=== PATIENT | male | born 2000 | race Caucasian/White ===

== ENCOUNTER → 2020-04-27 16:42 | Outpatient (CLI) | payer BC, SELFPAY | PROVIDERS: PCP Family Medicine; Visit Provider Nurse Practitioner | DX: J35.8 Other chronic diseases of tonsils and adenoids (principal) | CPT/HCPCS: 87070 ==

== ENCOUNTER → 2020-08-26 13:21 | Outpatient (CLI) | payer BC, SELFPAY ==
[2020-08-26 15:37] LABS: COVID19 -Nasal RAPID Negative (Negative)
== END ==
PROVIDERS: PCP Family Medicine; Visit Provider Nurse Practitioner
DX: Z20.828 Contact with and (suspected) exposure to other viral communicable diseases (principal)
CPT/HCPCS: 87635

== ENCOUNTER 2020-08-29 07:34 | Day surgery (SDC) | payer BC, SELFPAY ==
[2020-08-26 13:28] VITALS: BMI 25.8
[2020-08-29] VITALS (11 sets, daily range): BP systolic 98–125; BP diastolic 44–78; PULSE 62–79; RESP 12–18; TEMP 36.2–36.7; O2SAT 94–100; BMI 24.4
[2020-08-29] MEDS: LACTATED RINGERS 1,000 ML 42 ML IV (08:13)
--- NOTE | 2020-08-29 08:36 | PM.PREOP ---
Pre-operative Note COVID-19 COVID-19 status: Negative Result date/Date tested (Pos, Neg/Pending): 08/26/20 Interval Note History & Physical reviewed/Exam performed by Physician: Yes Changes to H&P: No
--- NOTE | 2020-08-29 08:37 | P.HP_ITS ---
History of Present Illness History of Present Illness Date Patient Seen: 08/29/20 Time Patient Seen: 08:37 Chief complaint: Chronic tonsillitis, tonsil stones, throat pain Narrative: 19-year-old male presents for evaluation of recurrent tonsil stones, tonsillar hypertrophy and throat pain especially after suffering mononucleosis 3 years ago. Seven day episodes of fatigue throat pain and cervical lymphadenopathy with tonsillar hypertrophy occurring on average monthly over the last year. Also weekly tonsil stones. Following discussion of the material risks benefits complications and alternatives, he elected to proceed with tonsillectomy and possible adenoidectomy due to the failure of medical therapy. Patient History Medical History Allergic rhinitis Chronic tonsillitis Enlarged tonsils Mononucleosis (~2017) Post-nasal drainage Tonsillar hypertrophy Family & Social History Social History: household members family Tobacco & Substance use: Smoking Status Never smoker alcohol intake current alcohol intake frequency a few times a week Substance Use Type does not use Meds Home Medications and Allergies Home Medications Medication Instructions Recorded Confirmed Type cetirizine [Zyrtec] 10 mg PO DAILY 08/26/20 08/29/20 History Allergies Allergy/AdvReac Type Severity Reaction Status Date / Time Penicillins Allergy Rash Verified 08/29/20 07:44 Review of Systems Review of Systems ROS: Yes All systems reviewed with the patient and are negative except as otherwise documented Exam Vital Signs (past 8 hours): - 08/29/20 07:50 Temperature 98.1 F Pulse Rate 69 Respiratory Rate 16 Blood Pressure 120/62 Pulse Oximetry 100 Oxygen Delivery Method Room Air Narrative Exam Narrative: Well-developed well-nourished male. Tonsils 2 to 3+. Heart regular rate and rhythm without murmur, lungs clear to auscultation bilaterally. Assessment & Plan Assessment & Plan narrative: Assessment: Chronic tonsillitis, tonsil stones, r ecurring acute tonsillitis, respiratory obstruction and tonsillar hypertrophy Plan: Following discussion of the material risks benefits complications and alternatives, he elected to proceed with tonsillectomy and possible adenoidectomy.
--- NOTE | 2020-08-29 08:40 | PM.OP.1 ---
Operative Date/Time/Diagnoses Date of procedure: 08/29/20 Time of procedure: 09:29 Pre-op diagnosis: Chronic tonsillitis, tonsil stones, recurring acute tonsillitis, respiratory obstruction, tonsillar hypertrophy Post-op diagnosis: same Procedure & Clinicians Procedure: Tonsillectomy and adenoidectomy Same procedure as scheduled: Yes Indications: 20-year-old male with the above diagnoses incompletely managed with medical therapy presents for the above procedures. Following discussion of the material risks benefits complications and alternatives, he elected to proceed. Surgeon: Chandra Araiza Click Yes if Unassisted: Yes Anesthesia Type: General and Local Operative Notes Findings: Intact palate, single uvula, 2 to 3+ tonsils with numerous stones, 2+ adenoids. 3mm vessel visible LEFT tonsillar fossa, intact, not manipulated. Closure Type: not applicable Specimen(s): none sent Estimated Blood Loss (mL): 5 Blood products transfused: none Procedure in detail: Following identification and confirmation of consent the patient was brought to the operating room suite and placed in the supine position. General endotracheal anesthesia was administered. A head wrap, shoulder roll, and mouth gag were placed and a red rubber catheter was inserted through the nostril and out the mouth to retract the soft palate. Mild adenoid tissue was ablated with suction electrocautery on a setting of 40, without injury to the eustachian tube orifices or choana. The left tonsil was retracted medially and suction electrocautery on a setting of 30 was used to dissect the tonsil in a subcapsular plane, followed by hemostasis with the same. This process was repeated on the right side with identical findings. The tonsillar fossae were superficially infiltrated bilaterally with a 1:1 mixture of 1% lidocaine 1 100,000 epinephrine and 0.25% Marcaine 1 to [id number] epinephrine. Mouth gag and rubber catheter were removed and the patient was extubated in the operating room and taken to the recovery room in stable condition without known complication. Complications: none Post-operative Condition: stable Disposition: same day surgery Plan for aftercare: Tylenol alternating with ibuprofen for baseline pain control, oxycodone for breakthrough pain, push fluids
--- NOTE | 2020-08-29 09:01 | SUR.OPER ---
Supine on padded OR bed, head on gel donut, arms secured on padded arm boards at <90 degrees abduction, legs uncrossed, safety belt at thigh, tape over blanket over lower legs.
[2020-08-29] MEDS: LIDOCAINE 1% W/EPI 20 ML INJ (09:06)
[2020-08-29] MEDS: BUPIVACAINE 0.25% W/ EPI 30 ML VIAL INJ (09:07)
[2020-08-29] MEDS: OXYCODONE/ACETAMINOPHEN 5/325 TABLET 1 TAB PO (09:55)
== END 2020-08-29 10:40 | disposition home or self-care (01) ==
PROVIDERS: PCP Family Medicine; Referring Provider Family Medicine; Visit Provider Otolaryngology
PROC: (CPT 42821; principal; 2020-08-29 08:45)
DX: J03.91 Acute recurrent tonsillitis, unspecified (principal); J35.01 Chronic tonsillitis; J35.8 Other chronic diseases of tonsils and adenoids
CPT/HCPCS: 42821; J0330; J1100; J2250; J2405; J2704; J3010